=== PATIENT | female | born 1940 | race Caucasian/White ===

== ENCOUNTER → 2016-08-03 | Outpatient (CLI) | payer OTHER ==
[2016-08-03 10:40] LABS: BLOOD GAS BASE EXCESS 1.1 mmol/L (-2-2); BLOOD GAS CARBOXYHEMOGLOBIN 1.5 % (0-4); BLOOD GAS HCO3 25 mmol/L (22-26); BLOOD GAS METHEMOGLOBIN 0.9 % (0-2); BLOOD GAS O2 HGB SATURATION 96 % (90-100); BLOOD GAS OXYGEN CONTENT 17.6 Vol % (12.0-20.0); BLOOD GAS PCO2 37 mmHg (38-42); BLOOD GAS PO2 98 mmHg (61-120); TEMP CORR TO 98.6
[2016-08-03 10:41] LABS: CRITICAL VALUE NO; DRAW SITE RT RADIAL; FIO2 21 %; NUMBER OF ARTERIAL PUNCTURES 1; STAT NO; ULNAR PULSE PRESENT
--- NOTE | 2016-08-05 08:57 | RSPPFT ---
DATE OF PROCEDURE: 08/03/16 COMMENTS: Spirometry shows FVC of 2.0 at 77% of predicted, FEV1 of 1.2 at 68%, FEV1/FVC ratio is decreased. Flow is decreased at FEF 25, FEF 50, FEF 75 and FEF 25-75. There is a mild response after bronchodilator treatment. Lung volumes show residual volume is increased. TLC is normal. Diffusion capacity is normal. Flow volume loop indicates an obstructive pattern. IMPRESSION: 1. Mild obstructive lung disease. 2. Mild response after bronchodilator treatment. 3. Lung volumes show hyperinflation. 4. Normal diffusion capacity.
== END ==
LOC: HRSP 09:21
PROVIDERS: ATTEND Specialist
DX: J44.9 Chronic obstructive pulmonary disease, unspecified (principal)
CPT/HCPCS: 36600; 82805; 94060; 94726; 94729

== ENCOUNTER 2018-02-06 08:00 | Inpatient (IN) ==
[2018-02-27] MEDS ORDERED: Metoprolol Tartrate 25 MG Tablet PO ONE (06:35)
[2018-02-27] MEDS ORDERED: Chlorhexidine Gluconate 2% 1 Pack (2 Cloths) TOPICAL ONE (06:35)
--- NOTE | 2018-02-27 06:53 | XR ---
EXAM DATE: 02/27/2018 6:48 AM EDT AGE/SEX: 78 years / Female INDICATIONS: Evaluate for pneumonia, pneumothorax, or communicable disease. Pre-op right carotid frederick kelly. CLINICAL DATA: This is the patient's initial encounter. Patient reports that signs and symptoms have been present for 1 day and indicates a pain score of 0/10. MEDICAL/SURGICAL HISTORY: Hypertension. High cholesterol. Hypothyroidism. . Achilles tendon re pair.Hernia repair.Appendectomy.Bladder repair surgery.Cardiac catheterization.CholecystectomyPartial thyroidectomy. COMPARISON: [facility] [place] 2V PA&LAT, 02/01/2018. . FINDINGS: A single AP view of the chest demonstrates the lungs to be symmetrically aerated without evidence of mass, infiltrate or effusion. The cardiomediastinal contours are unremarkable. Osseous structures a re intact. CONCLUSION: No evidence of acute cardiopulmonary disease. Electronically signed by: Sal Yadav MD 02/27/2018 6:52 AM EDT
[2018-02-27 06:56] LABS: Baso # (Auto) 0.1 th/mm3 (0.0-0.2); Baso % (Auto) 1.3 % (0.0-2.0); Eos # (Auto) 0.4 th/mm3 (0.0-0.4); Eos % (Auto) 6.5 % (0.0-4.0); Hematocrit 35.6 % (35.0-46.0); Hemoglobin 12.2 gm/dL (11.6-15.3); Lymph # (Auto) 1.6 th/mm3 (1.0-4.8); Lymph % (Auto) 25.7 % (9.0-44.0); Mean Corpuscular HGB Conc 34.3 % (32.0-36.0); Mean Corpuscular Hemoglobin 30.2 pg (27.0-34.0); Mean Corpuscular Volume 88.2 fL (80.0-100.0); Mean Platelet Volume 7.6 fL (7.0-11.0); Mono # (Auto) 0.6 th/mm3 (0.0-0.9); Mono % (Auto) 9.7 % (0.0-8.0); Neut # (Auto) 3.5 th/mm3 (1.8-7.7); Neut % (Auto) 56.8 % (16.0-70.0); Platelet Count 254 th/mm3 (150-450); Red Blood Count 4.04 mil/mm3 (4.00-5.30); Red Cell Distribution Width 13.7 % (11.6-17.2); White Blood Count 6.2 th/mm3 (4.0-11.0)
[2018-02-27] MEDS ORDERED: Thrombin Topical 20,000 UNIT Spray Kit TOPICAL ONE (06:57)
[2018-02-27] MEDS ORDERED: Protamine Sulfate Inj 50 MG/5 ML Vial ONE (06:57)
[2018-02-27] MEDS ORDERED: Heparin/NS PF Inj 500 ML ONE (06:58)
[2018-02-27] MEDS ORDERED: Heparin 10,000 UNITS/10 ML Vial (for IV use) ONE (06:58)
[2018-02-27] MEDS ORDERED: Sodium Chlor 0.9% Inj 500 ML IV.SIG SCH (07:00)
[2018-02-27] MEDS ORDERED: Nitroglycerin Drip Premix 0 MG/0 ML BOTTLE ONE (07:07)
[2018-02-27 07:10] LABS: Calcium 8.6 mg/dL (8.5-10.1); Carbon Dioxide 29.5 meq/L (21.0-32.0); Potassium 3.7 meq/L (3.5-5.1)
[2018-02-27] MEDS ORDERED: ceFAZolin 2 GM Premix Inj 2 GM/50 ML PIGGYBACK IV.SIG ONE (07:30)
[2018-02-27] MEDS ORDERED: Bupivacaine PF 0.5% Inj 30 ML Vial ONE (07:30)
[2018-02-27 07:40] LABS: Bacteria,Urine Few /hpf; Bilirubin,Urine Negative (Negative); Clarity,Urine Cloudy (Clear); Color,Urine Yellow (Yellw/Straw); Glucose,Urine (UA) Negative (Negative); Hyaline Casts,Urine 1 /lpf (0-3); Leukocyte Esterase,Urine Large (Negative); Mucus,Urine Few /lpf (Occasional); Nitrite,Urine Negative (Negative); Squamous Epithelial Cell,Urine 19 /hpf (0-5)
[2018-02-27] MEDS ORDERED: Famotidine PF Inj 20 MG/2 ML Vial ONE (07:41)
[2018-02-27] MEDS ORDERED: Sugammadex Inj 200 MG/2 ML Vial IV.PUSH ONE (08:33)
--- NOTE | 2018-02-27 08:44 | P.HPVS ---
History of Present Illness Chief Complaint: Asymptomatic RIGHT carotid stenosis History of Present Illness: 78 yo female with asymptomatic 90% R ICA stenosis, no prior CVA/TIA. L <50% - Inpatient Certification If this patient has been admitted as an Inpatient: I certify that the inpatient services were ordered in accordance with Medicare regulations governing the order. This includes certification that hospital inpatient services are reasonable and necessary and in the case of services not specified as inpatient-only under 42 CFR 419.22(n), that they are appropriately provided as inpatient services in accordance to with the 2-midnight benchmark under 43 CFR 412.3(e) Estimated Total Length of Stay (Days): 2 Plans for Post Hospital Care: Home Review of Systems Constitutional: Denies chills, Denies fever(s) PMFSH - History History Provided By: Patient - Medical History Medical History: Medical History (Last Reviewed 02/27/18 @ 08:43 by Agustin Irving MD) Barretts esophagus Carotid stenosis, right High cholesterol History of rectocele Hx of hysterectomy Hypertension Hypothyroidism Wears glasses - Surgical History Surgical History: Surgical History (Last Reviewed 02/27/18 @ 08:43 by Agustin Irving MD) History of Achilles tendon repair History of incisional hernia repair Hx of appendectomy Hx of bladder repair surgery Hx of cardiac catheterization Hx of cholecystectomy Hx of hernia repair Hx of partial thyroidectomy Hx of umbilical hernia repair - Tobacco History Second Hand Smoke Exposure: No Smoking Status: Former smoker - Alcohol History How Often Do You Have a Drink Containing Alcohol: Monthly or less - Substance Use History Substance History: No History of Abuse - Travel History Recent Travel in the [place] Within the Last 8 Weeks: No Recent Travel Out of the Country Within the Last 8 Weeks: No Medications and Allergies Active Medications: Active Medications Lactated Ringer's (Lr 1000 Ml Inj) 1,000 mls @ 30 mls/hr IV.SIG .Q24H [facility] Stop: 02/28/18 06:44 Last Admin: 02/27/18 07:09 Dose: 30 mls/hr Sodium Chloride (Ns Inj) 500 mls @ 30 mls/hr IV.SIG .Q10H [facility] Last Admin: 02/27/18 07:09 Dose: Not Given Allergies Allergy/AdvReac Type Severity Reaction Status Date / Time No Known Allergies Allergy Verified 02/27/18 07:02 Home Medications Medication Instructions Recorded Confirmed Type aspirin [Adult Low Dose Aspirin] 81 mg PO DAILY 10/04/18 10/30/18 History atenolol 100 mg PO DAILY 02/01/18 02/27/18 History calcium carbonate [Calcium 600] 600 mg PO BID 02/01/18 02/27/18 History cholecalciferol (vitamin D3) 2,000 unit PO DAILY 02/01/18 02/27/18 History [Vitamin D3] hydroxychloroquine 200 mg PO BID 02/01/18 02/27/18 History levothyroxine 2 tab PO DAILY 02/01/18 02/27/18 History losartan-hydrochlorothiazide 1 tab PO DAILY 02/01/18 02/27/18 History omeprazole 40 mg PO DAILY 02/01/18 02/27/18 History oxybutynin chloride 5 mg PO BID 02/01/18 02/27/18 History simvastatin 40 mg PO QPM 02/01/18 02/27/18 History trazodone 100 mg PO DAILY 02/01/18 02/27/18 History Physical Exam Vital Signs / I&O: Vital Signs 02/27/18 06:48 Temperature 98.4 F Pulse Rate 53 L Respiratory Rate 22 Blood Pressure 129/66 Pulse Oximetry 99 Intake & Output 02/26/18 02/27/18 02/27/18 18:59 06:59 18:59 Weight 89.5 kg Other: Weight On Admission 89.5 kg Neuro: alert, appropriately anxious neuro intact HEENT: NC/AT Neck: no JVD and no neck rashes Heart: reg rate Lungs: clear Laboratory Results - last 24 hr 02/27/18 02/27/18 02/27/18 06:07 06:40 06:40 WBC 6.2 RBC 4.04 Hgb 12.2 Hct 35.6 MCV 88.2 MCH 30.2 MCHC 34.3 RDW 13.7 Plt Count 254 MPV 7.6 Neut % (Auto) 56.8 Lymph % (Auto) 25.7 [place] % (Auto) 9.7 H Eos % (Auto) 6.5 H Baso % (Auto) 1.3 Neut # (Auto) 3.5 Lymph # (Auto) 1.6 [place] # (Auto) 0.6 Eos # (Auto) 0.4 Baso # (Auto) 0.1 WBC Differential . Differential Comment Auto diff final PT INR APTT Sodium 140 Potassium 3.7 Chloride 103 Carbon Dioxide 29.5 Anion Gap 8 BUN 25 H Creatinine 1.46 H Estimated GFR 35 L Random Glucose 103 Calcium 8.6 Urine Color Yellow Urine Clarity Cloudy H Urine pH 6.0 Ur Specific [place] 1.010 Urine Protein Negative Urine Glucose (UA) Negative Urine Ketones Negative Urine Occult Blood Small H Urine Nitrate Negative Urine Bilirubin Negative Urine Urobilinogen Less than 2 Ur Leukocyte Esterase Large H Urine RBC 8 H Urine WBC 69 H Ur Squamous Epith Cells 19 Urine Bacteria Few H Hyaline Casts 1 Urine Mucus Few H Micro UA Comment Culture indicated Ur Microscopic Review Not Reportable Urine Culture Comments Culture indicated Blood Type Blood Type Recheck Antibody Screen 02/27/18 02/27/18 02/27/18 06:40 06:40 06:40 WBC RBC Hgb Hct MCV MCH MCHC RDW Plt Count MPV Neut % (Auto) Lymph % (Auto) [place] % (Auto) Eos % (Auto) Baso % (Auto) Neut # (Auto) Lymph # (Auto) [place] # (Auto) Eos # (Auto) Baso # (Auto) WBC Differential Differential Comment PT 10.0 INR 1.0 APTT 24.7 Sodium Potassium Chloride Carbon Dioxide Anion Gap BUN Creatinine Estimated GFR Random Glucose Calcium Urine Color Urine Clarity Urine pH Ur Specific [place] Urine Protein Urine Glucose (UA) Urine Ketones Urine Occult Blood Urine Nitrate Urine Bilirubin Urine Urobilinogen Ur Leukocyte Esterase Urine RBC Urine WBC Ur Squamous Epith Cells Urine Bacteria Hyaline Casts Urine Mucus Micro UA Comment Ur Microscopic Review Urine Culture Comments Blood Type O Positive Blood Type Recheck Required Antibody Screen Negative Impressions Chest X-Ray 02/27/18 00:00 CONCLUSION: No evidence of acute cardiopulmonary disease. Caprini VTE Risk Assessment Caprini VTE Risk Assessment: No/Low Risk (score <= 1) (intraop heparinization) Caprini Risk Assessment Model: Point Value = 1 Point Value = 2 Point Value = 3 Point Value = 5 Age 41-60 Minor surgery BMI > 25 kg/m2 Swollen legs Varicose veins or History of unexplained or recurrent spontaneous Oral contraceptives or hormone replacement Sepsis (< 1 month) Serious lung disease, including pneumonia (< 1 month) Abnormal pulmonary function Acute myocardial infarction Congestive heart failure (< 1 month) History of inflammatory bowel disease Medical patient at bed rest Age 61-74 Arthroscopic surgery Major open surgery (> 45 min) Laparoscopic surgery (> 45 min) Malignancy Confined to bed (> 72 hours) Immobilizing plaster cast Central venous access Age >= 75 History of VTE Family history of VTE Factor V Leiden Prothrombin [id number] Lupus anticoagulant Anticardiolipin antibodies Elevated serum homocysteine Heparin-induced thrombocytopenia Other congenital or acquired thrombophilia Stroke (< 1 month) Elective arthroplasty Hip, pelvis, or leg fracture Acute spinal cord injury (< 1 month) Prophylaxis Regimen: Total Risk Factor Score Risk Level Prophylaxis Regimen 0-1 Low Early ambulation 2 Moderate Order ONE of the following: *Sequential Compression Device (SCD) *Heparin 5000 units SQ BID 3-4 Higher Order ONE of the following medications: *Heparin 5000 units SQ TID *Enoxaparin/Lovenox 40 mg SQ daily (WT < 150 kg, CrCl > 30 mL/min) *Enoxaparin/Lovenox 30 mg SQ daily (WT < 150 kg, CrCl > 10-29 mL/min) *Enoxaparin/Lovenox 30 mg SQ BID (WT < 150 kg, CrCl > 30 mL/min) AND/OR *Sequential Compression Device (SCD) 5 or more Highest Order ONE of the following medications: *Heparin 5000 units SQ TID (Preferred with Epidurals) *Enoxaparin/Lovenox 40 mg SQ daily (WT < 150 kg, CrCl > 30 mL/min) *Enoxaparin/Lovenox 30 mg SQ daily (WT < 150 kg, CrCl > 10-29 mL/min) *Enoxaparin/Lovenox 30 mg SQ BID (WT < 150 kg, CrCl > 30 mL/min) AND *Sequential Compression Device (SCD) Assessment and Plan - Assessment (1) Carotid stenosis, right Code(s): I65.21 - Occlusion and stenosis of right carotid artery Status: Acute - Plan R CEA Discussed risks and benefits with patient and . Consent obtained. To OR [phone]
[2018-02-27] MEDS ORDERED: Bisacodyl 10 MG Supp RECTAL PRN (10:49)
[2018-02-27] MEDS ORDERED: Morphine Inj 4 MG/ML Vial IV.PUSH PRN (10:49)
--- NOTE | 2018-02-27 11:03 | P.OP ---
- Preoperative Diagnosis (1) Carotid stenosis, right - Postoperative Diagnosis (1) Carotid stenosis, right Date of procedure: 02/27/18 Procedure: R CEA Implants: bovine patch Anesthesia: GETA Surgeon: Agustin Irving MD Honing Machine Operator Tool: Edilia Raymundo Estimated blood loss (mL): 120 IV fluids (mL): 1,600 Urine output (mL): 400 Pathology: none sent Operation and Findings: successful CEA neuro intact after extubation
[2018-02-27] MEDS ORDERED: fentaNYL Citrate Inj 100 MCG/2 ML Ampul ONE (11:24)
[2018-02-27] MEDS ORDERED: Dextrose 50% in Water 50 ML Vial IV.PUSH PRN (12:32)
--- NOTE | 2018-02-27 13:01 | MB ---
cc: Ml Ross MD DATE: 02/27/2018 HISTORY OF PRESENT ILLNESS: The patient is a 78-year-old female with past medical history of right internal carotid artery stenosis, hyperlipidemia, hypertension, hypothyroidism, who underwent right carotid endarterectomy earlier today by Dr. Irving. The patient had 120 mL of estimated blood loss, 1.6 liters of crystalloid given in the OR and urine output was 400 mL. Critical care Medicine was consulted for critical care management. When seen, she is on 2 liters oxygen with a good saturation and current blood pressure 129/69. The patient is awake, alert, lying comfortable in bed, in no acute respiratory distress. She denies any chest pain, shortness of breath, or GI symptoms. In addition, she denies any orthopnea, PND, or edema of lower extremities. PAST MEDICAL HISTORY: Significant for hypothyroidism, hypertension, hyperlipidemia, right carotid artery stenosis, Sauceda's esophagus, obesity. PAST SURGICAL HISTORY: Previous appendectomy, previous cholecystectomy, previous hernia repair, previous partial thyroidectomy, previous bladder repair surgery, previous Achilles tendon repair. ALLERGIES: NO KNOWN DRUG ALLERGIES. SOCIAL HISTORY: The patient has remote history of tobacco use. Occasional drinker. FAMILY HISTORY: Noncontributory to present illness. MEDICATIONS AT HOME: 1. Aspirin. 2. Atenolol. 3. Trazodone. 4. Omeprazole. 5. Levothyroxine. 6. Simvastatin. 7. Hydroxychloroquine. REVIEW OF SYSTEMS: As per HPI. Rest of review of systems is unremarkable. PHYSICAL EXAMINATION: GENERAL: This is a 78 -year-old female lying in bed, in no acute respiratory distress. VITAL SIGNS: Temperature 97.5, pulse of 61, blood pressure 129/69, saturation 99%. HEENT: Atraumatic, normocephalic. Pupils are equal, round, reactive to light and accommodation. Extraocular muscles intact. Conjunctivae pink. Nonicteric sclerae. Oral mucosa within normal. NECK: Supple. No JVD, adenopathy, or thyromegaly. Trachea in the midline. CARDIOVASCULAR: Regular rate and rhythm. Normal S1, S2. No murmurs, rubs, or gallops noted. PULMONARY: Bilateral equal air entry. No rales or wheezing. ABDOMEN: Soft, obese, nontender. No distention. Positive bowel sounds. EXTREMITIES: No cyanosis, clubbing, or edema. NEUROLOGIC: No focal sensory deficit. LABORATORY DATA: WBC 6.2, hemoglobin 12.2, hematocrit 35, platelet count of 254. Sodium 140, potassium 3.7, chloride 103, CO2 29, BUN 25, creatinine 1.46, glucose of 103. Urinalysis showed large leukocyte esterase, 69 WBCs. RADIOGRAPHIC STUDIES: Chest x-ray showed no acute cardiopulmonary disease. IMPRESSION: 1. Respiratory insufficiency. 2. Status post right carotid endarterectomy. 3. Right carotid stenosis. 4. Mild acute kidney injury. 5. Urinary tract infection. 6. Hypertension. 7. Hypothyroidism. 8. Hyperlipidemia. 9. Obesity. RECOMMENDATIONS: 1. Monitor neuro status closely and avoid any sedatives. 2. Continue oxygen and maintain sats above 92%. 3. Place on bronchodilators in the form of DuoNeb every 6 hours and every 2 hours p.r.n. for shortness of breath. 4. Monitor heart rate and blood pressure closely and maintain MAP greater than 65 mmHg. 5. Continue aspirin 81 mg daily, Tenormin 100 mg daily as ordered. 6. Monitor renal function, I's and O's and electrolyte replacement as needed. Avoid nephrotoxins. 7. Start p.o. cardiac diet as ordered and place on Protonix [address] on Rocephin 1 gram IV daily for UTI and monitor for signs of infection, which include fever and WBC. Followup on a urine culture. 9. Monitor CBC. 10. Sliding scale insulin with Accu-Cheks if needed for glycemic control. Continue with Synthroid 176 mcg daily. We will check a baseline TSH level in am. 11. GI prophylaxis with Protonix 40 mg daily and DVT prophylaxis she is on Lovenox 40 mg subcutaneous daily. 12. Further recommendations will be based on hospital course. MD NURY Hill/suraj , 12:31 PM , 12:43 PM JERRELL
--- NOTE | 2018-02-27 13:49 | P.PNVS ---
Subjective Post Op Day #: 0 Procedure: R CEA Subjective/Hospital Course: Pt A&Ox3 Speech clear Pt c/o mild R neck incisional pain Pt neurologically intact w/o acute headache Pt endorsed R upper shoulder to neck discomfort- Hx of Objective Vital Signs / I&O: Vital Signs 02/27/18 06:48 02/27/18 11:31 02/27/18 11:33 Temperature 98.4 F 97.5 F L Pulse Rate 53 L 65 66 Respiratory Rate 22 18 Blood Pressure 129/66 134/67 Pulse Oximetry 99 99 02/27/18 11:39 Temperature Pulse Rate 59 L Respiratory Rate 17 Blood Pressure 129/69 Pulse Oximetry 99 Intake & Output 02/26/18 02/27/18 02/27/18 18:59 06:59 18:59 Intake Total 2150 / 2150 Output Total 520 / 520 Balance 1630 / 1630 Weight 89.5 kg Intake: IV 550 / 550 Heparin/NS PF Inj 500 ML @ 0 500 / 500 mls/hr .ROUTE .STK-MED ONE Rx#: [id number] Ancef 2 GM Premix Inj 2 gm In 50 / 50 50 ml @ 0 mls/hr IV.SIG .STK- MED ONE Rx#:[id number] Anesthesia Amount 1600 / 1600 Output: Estimated Blood Loss 120 / 120 Urine Amount (Catheter) 400 / 400 Indwelling Urethral Catheter 400 / 400 Other: Date of Last Bowel Movement 02/26/18 Weight On Admission 89.5 kg Exam: GENERAL: A&Ox3, GCS 15, NAD , speech clear SKIN: Warm and dry. Incision to r side of neck intact with surgical glue closure/ erythema noted at the mid incision line HEAD: Normocephalic. EYES: No scleral icterus. No injection or drainage. NECK: Supple, trachea midline. No JVD or lymphadenopathy. CARDIOVASCULAR: Regular rate and rhythm without murmurs, gallops, or rubs. RESPIRATORY: Breath sounds equal bilaterally. No accessory muscle use. Pt w/o acute headache Mild right sided facial droop present Pulses: R/L radial pulses present Laboratory Results - last 24 hr 02/27/18 02/27/18 02/27/18 06:07 06:40 06:40 WBC 6.2 RBC 4.04 Hgb 12.2 Hct 35.6 MCV 88.2 MCH 30.2 MCHC 34.3 RDW 13.7 Plt Count 254 MPV 7.6 Neut % (Auto) 56.8 Lymph % (Auto) 25.7 [place] % (Auto) 9.7 H Eos % (Auto) 6.5 H Baso % (Auto) 1.3 Neut # (Auto) 3.5 Lymph # (Auto) 1.6 [place] # (Auto) 0.6 Eos # (Auto) 0.4 Baso # (Auto) 0.1 WBC Differential . Differential Comment Auto diff final PT INR APTT Sodium 140 Potassium 3.7 Chloride 103 Carbon Dioxide 29.5 Anion Gap 8 BUN 25 H Creatinine 1.46 H Estimated GFR 35 L Random Glucose 103 Calcium 8.6 Urine Color Yellow Urine Clarity Cloudy H Urine pH 6.0 Ur Specific [place] 1.010 Urine Protein Negative Urine Glucose (UA) Negative Urine Ketones Negative Urine Occult Blood Small H Urine Nitrate Negative Urine Bilirubin Negative Urine Urobilinogen Less than 2 Ur Leukocyte Esterase Large H Urine RBC 8 H Urine WBC 69 H Ur Squamous Epith Cells 19 Urine Bacteria Few H Hyaline Casts 1 Urine Mucus Few H Micro UA Comment Culture indicated Ur Microscopic Review Not Reportable Urine Culture Comments Culture indicated Blood Type Blood Type Recheck Antibody Screen 02/27/18 02/27/18 02/27/18 06:40 06:40 06:40 WBC RBC Hgb Hct MCV MCH MCHC RDW Plt Count MPV Neut % (Auto) Lymph % (Auto) [place] % (Auto) Eos % (Auto) Baso % (Auto) Neut # (Auto) Lymph # (Auto) [place] # (Auto) Eos # (Auto) Baso # (Auto) WBC Differential Differential Comment PT 10.0 INR 1.0 APTT 24.7 Sodium Potassium Chloride Carbon Dioxide Anion Gap BUN Creatinine Estimated GFR Random Glucose Calcium Urine Color Urine Clarity Urine pH Ur Specific [place] Urine Protein Urine Glucose (UA) Urine Ketones Urine Occult Blood Urine Nitrate Urine Bilirubin Urine Urobilinogen Ur Leukocyte Esterase Urine RBC Urine WBC Ur Squamous Epith Cells Urine Bacteria Hyaline Casts Urine Mucus Micro UA Comment Ur Microscopic Review Urine Culture Comments Blood Type O Positive Blood Type Recheck Required Antibody Screen Negative Assessment and Plan - Assessment (1) Carotid stenosis, right Code(s): I65.21 - Occlusion and stenosis of right carotid artery Status: Acute - Plan 78/F with a hx of R sided cartoid artery stenosis Pt s/p R CEA POD 0 Pt doing well and is neurologically intact No complaints of acute headache Plan Ok to d/c A line Maintain systolic B/P 140-160 ok to D/c Doyle cath tomorrow am at 0600 Once tolerating a diet can d/c MIVF Pt may get OOB at 1600 Merna Baker NP [facility] [phone] Mr. Gregorio Johnson [phone]
[2018-02-27] MEDS ORDERED: Acetaminophen 325 MG Tablet PO PRN (14:04)
--- NOTE | 2018-02-27 14:55 | ECG ---
Date Performed: 02/27/2018 Time Performed: 07:06:45 PTAGE: 78 years EKG: SINUS BRADYCARDIA Since the previous tracing, no significant change noted BORDERLINE ECG PREVIOUS TRACING : 01/15/2001 19.43 DOCTOR: Anton Damico Interpretating Date/Time 02/27/2018 14:49:41
[2018-02-27] MEDS ORDERED: Insulin NovoLIN Regular Correctional Sugar Inj SQ SCH (18:00)
[2018-02-27] MEDS: Calcium Carbonate 500 MG Tablet PO SCH (20:16)
[2018-02-27] MEDS: Hydroxychloroquine 200 MG Tablet PO SCH (20:35)
--- NOTE | 2018-02-27 21:57 | MP ---
cc: Agustin Irving MD DATE OF OPERATION: 02/27/2018 PREOPERATIVE DIAGNOSIS: Asymptomatic high-grade right carotid stenosis. POSTOPERATIVE DIAGNOSIS: Asymptomatic high-grade right carotid stenosis. PROCEDURE PERFORMED: Right carotid endarterectomy. ATTENDING SURGEON: Agustin Irving MD MILITARY NURSE SURGEON: ALEKSANDER Charles ANESTHESIA: General. INDICATIONS: Mrs. Barboza is a 78-year-old female with a high-grade greater than 90% right carotid stenosis. She was taken to the operating room for elective carotid endarterectomy. DESCRIPTION OF PROCEDURE: Informed consent was obtained from the patient. She was taken to the operating room and placed supine on the operating table. An appropriate timeout was taken to ensure the patient's identity, operative site and planned procedure. The administration of 2 grams of Ancef was initiated prior to skin incision and will be discontinued after single preoperative dose. Everyone in the room agreed with timeout and we proceeded. Her right neck was prepped and draped and a vertical and incision was made along the anterior border of sternocleidomastoid down through subcutaneous tissue with electrocautery. The jugular vein was identified. This retracted posteriorly. The facial vein was divided between 3-0 silk ties. The common carotid artery was identified, dissected free, and encircled with a vessel loop. The internal carotid artery, external carotid artery and superior thyroid artery were all similarly dissected free. The patient was systemically heparinized. Once the ACT was confirmed to be greater than 250, distal then proximal control of the internal carotid artery and common carotid artery respectively were obtained with profunda clamps and the external carotid artery was controlled with a profunda clamp. A longitudinal arteriotomy was made with an 11 blade, extended with Dennys scissors from the common carotid artery extending up to the internal carotid artery to a reasonable endpoint. The artery was endarterectomized without difficulty and a nice endpoint was obtained. A bovine pericardial patch was brought up on the field and sewn on as a patch angioplasty. At the completion, it was flushed and noted to be hemostatic. The clamps were released. During the entire clamping and unclamping, there were no EEG neurological changes. The patch was made hemostatic. The heparin was reversed with protamine. Wound was infiltrated with Marcaine, irrigated and closed with 2-0 Polysorb, 3-0 Polysorb and 4-0 Monocryl. The sponge and needle counts were correct at the end of the case. At the end of the case, the patient was awoken from anesthesia, moved all extremities and transported to ICU in stable condition. MD SHIRA Hawkins/myla , 08:55 PM , 09:02 PM JERRELL
[2018-02-28] MEDS: Senna/Docusate Sodium 8.6/50 MG Tablet PO SCH ×2 (00:42→08:50)
[2018-02-28 04:32] LABS: Hematocrit 34.5 % (35.0-46.0); Mean Corpuscular HGB Conc 34.6 % (32.0-36.0); Mean Corpuscular Hemoglobin 30.3 pg (27.0-34.0); Mean Corpuscular Volume 87.3 fL (80.0-100.0); Mean Platelet Volume 8.4 fL (7.0-11.0); Platelet Count 233 th/mm3 (150-450); Red Blood Count 3.95 mil/mm3 (4.00-5.30); Red Cell Distribution Width 13.5 % (11.6-17.2); White Blood Count 15.5 th/mm3 (4.0-11.0)
[2018-02-28 04:45] LABS: Calcium 8.5 mg/dL (8.5-10.1); Carbon Dioxide 27.2 meq/L (21.0-32.0); Potassium 4.1 meq/L (3.5-5.1)
[2018-02-28 04:56] LABS: Thyroid Stimulating Hormone 1.88 uIU/mL (0.358-3.740)
[2018-02-28] MEDS ORDERED: Levothyroxine 88 MCG Tablet PO SCH (06:00)
--- NOTE | 2018-02-28 06:45 | P.PNCC ---
Subjective Subjective Remarks/Hospital Course: The patient is a 78-year-old female with past medical history of right internal carotid artery stenosis, hyperlipidemia, hypertension, hypothyroidism, who underwent right carotid endarterectomy earlier today by Dr. Irving. The patient had 120 mL of estimated blood loss, 1.6 liters of crystalloid given in the OR and urine output was 400 mL. Critical care Medicine was consulted for critical care management. When seen, she is on 2 liters oxygen with a good saturation and current blood pressure 129/69. The patient is awake, alert, lying comfortable in bed, in no acute respiratory distress. She denies any chest pain, shortness of breath, or GI symptoms. In addition, she denies any orthopnea, PND, or edema of lower extremities Subjective 02/28: No acute events overnight. Surgical site without signs of bleeding and well-healed. Some ecchymoses below the site. Complaining of neck pain which is been chronic. Not musculoskeletal in nature on examination.. Blood pressure slowly elevated overnight. Objective Vital Signs / I&O: Vital Signs 02/27/18 06:48 02/27/18 11:31 02/27/18 11:33 Temperature 98.4 F 97.5 F L Pulse Rate 53 L 65 66 Respiratory Rate 22 18 Blood Pressure 129/66 134/67 Pulse Oximetry 99 99 02/27/18 11:39 02/27/18 13:00 02/27/18 13:30 Temperature Pulse Rate 59 L 56 L Respiratory Rate 17 12 Blood Pressure 129/69 Pulse Oximetry 99 02/27/18 15:43 02/27/18 16:00 02/27/18 16:26 Temperature Pulse Rate 57 L 56 L Respiratory Rate 14 23 Blood Pressure Pulse Oximetry 02/27/18 19:00 02/27/18 23:00 02/28/18 03:00 Temperature 97.9 F 98.0 F Pulse Rate 59 L 58 L 74 Respiratory Rate 22 19 Blood Pressure 153/68 H 156/70 H Pulse Oximetry 98 99 Intake & Output 02/27/18 02/27/18 02/28/18 06:59 18:59 06:59 Intake Total 3350 / 3350 600 / 600 Output Total 1020 / 1020 600 / 600 Balance 2330 / 2330 0 / 0 Weight 89.5 kg 88.3 kg Intake: IV 550 / 550 Heparin/NS PF Inj 500 ML @ 0 500 / 500 mls/hr .ROUTE .STK-MED ONE Rx#: [id number] Ancef 2 GM Premix Inj 2 gm In 50 / 50 50 ml @ 0 mls/hr IV.SIG .STK- MED ONE Rx#:[id number] Oral 1200 / 1200 600 / 600 Anesthesia Amount 1600 / 1600 Output: Urine 600 / 600 Estimated Blood Loss 120 / 120 Urine Amount (Catheter) 900 / 900 Indwelling Urethral Catheter 900 / 900 Other: # Voids 4 Date of Last Bowel Movement 02/26/18 02/26/18 Weight On Admission 89.5 kg Result Diagrams: 02/28/18 03:35 02/28/18 03:35 Imaging: Chest X-Ray 02/27/18 00:00 CONCLUSION: No evidence of acute cardiopulmonary disease. Objective Remarks: GENERAL: 78-year-old female currently resting in bed in no acute distress SKIN: Warm and dry. HEAD: Atraumatic. Normocephalic. EYES: Pupils equal and round 3 mm bilaterally and reactive. No scleral icterus. No injection or drainage. ENT: No nasal bleeding or discharge. Mucous membranes pink and moist. NECK: Trachea midline. No JVD. Right IJ incision site clean dry intact. Sutures intact. Ecchymoses below surgical site. CARDIOVASCULAR: Regular rate and rhythm. RESPIRATORY: No accessory muscle use. Clear to auscultation. Breath sounds equal bilaterally. GASTROINTESTINAL: Abdomen soft, non-tender, nondistended. Hepatic and splenic margins not palpable. MUSCULOSKELETAL: Extremities without significant peripheral edema. No obvious deformities. NEUROLOGICAL: Awake and alert. Facial assymmetry. Motor grossly within normal limits. Five out of 5 muscle strength in the arms and legs. Normal speech. Assessment and Plan - Assessment and Plan Plan: Neuro.Psych: Depression NOS Vitamin-650 mg a mouth every 4 hours. Pain 1-2 Oxycodone 5 mg p.o. every 4 hours as needed pain 3 through 5 Hydromorphone 2 mg IV every 4 hours as needed pain 6 through 10 Morphine sulfate 2 mg IV every 2 hours as needed breakthrough pain Continue trazodone 100 mg at night CV: Postop day [address]. Irving Essential hypertension Hyperlipidemia Continue aspirin 81 mg daily Continue pravastatin 80 mg daily/hospital substitute for simvastatin 40 mg daily Continue losartan 100 mg daily, atenolol 100 mg daily, hydrochlorthiazide 25 mg p.o. daily Labetalol as needed. Resp: Nasal cannula to maintain saturations greater than equal to 92% Incentive spirometry while awake As needed albuterol aerosols every 2 hours as needed GI: History of Sauceda's esophagus Cardiac diet Pantoprazole for GI prophylaxis Docusate sodium/senna 1 tablet twice daily for bowel regimen : Straight catheterization as needed Endo: Hypothyroidism Continue levothyroxine 176 mcg daily. TSH is 1.88. Novulin R ssi AC/at bedtime low regimen to maintain euglycemia Renal: Chronic kidney disease stage IIIb Monitor urine output Accurate I's and O's LR 30 cc an hour times 1 L and discontinue Heme: Leukocytosis Monitor CBC daily. Follow trends. No indication for transfusion of blood products at this time. ID: Cystitis present on admission Currently on ceftriaxone 1 g every 24 hours. Follow-up UA culture msk: Chronic neck pain Osteoarthritis PT evaluate and treat. Outpatient evaluation Continue cholecalciferol 2000 units daily. Continue hydroxychloroquine 200 mg twice daily Continue calcium carbonate 5 mg twice daily fen: Replace electrolytes as clinically indicated Access -Utilize peripheral IV. Central line if indicated Prophylaxis -GI- Pantoprazole- DVT-SCD/enoxaparin Level 2 follow-up
--- NOTE | 2018-02-28 06:59 | P.PNVS ---
Subjective Post Op Day #: 1 Procedure: R CEA Subjective/Hospital Course: looks good neuro intact except asymmetric smile feels good bp controlled voiding and abbi po Objective Vital Signs / I&O: Vital Signs 02/27/18 11:31 02/27/18 11:33 02/27/18 11:39 Temperature 97.5 F L Pulse Rate 65 66 59 L Respiratory Rate 18 17 Blood Pressure 134/67 129/69 Pulse Oximetry 99 99 02/27/18 13:00 02/27/18 13:30 02/27/18 15:43 Temperature Pulse Rate 56 L Respiratory Rate 12 14 Blood Pressure Pulse Oximetry 02/27/18 16:00 02/27/18 16:26 02/27/18 19:00 Temperature 97.9 F Pulse Rate 57 L 56 L 59 L Respiratory Rate 23 22 Blood Pressure 153/68 H Pulse Oximetry 98 02/27/18 23:00 02/28/18 03:00 Temperature 98.0 F Pulse Rate 58 L 74 Respiratory Rate 19 Blood Pressure 156/70 H Pulse Oximetry 99 Intake & Output 02/27/18 02/27/18 02/28/18 06:59 18:59 06:59 Intake Total 3350 / 3350 600 / 600 Output Total 1020 / 1020 600 / 600 Balance 2330 / 2330 0 / 0 Weight 89.5 kg 88.3 kg Intake: IV 550 / 550 Heparin/NS PF Inj 500 ML @ 0 500 / 500 mls/hr .ROUTE .STK-MED ONE Rx#: [id number] Ancef 2 GM Premix Inj 2 gm In 50 / 50 50 ml @ 0 mls/hr IV.SIG .STK- MED ONE Rx#:[id number] Oral 1200 / 1200 600 / 600 Anesthesia Amount 1600 / 1600 Output: Urine 600 / 600 Estimated Blood Loss 120 / 120 Urine Amount (Catheter) 900 / 900 Indwelling Urethral Catheter 900 / 900 Other: # Voids 4 Date of Last Bowel Movement 02/26/18 02/26/18 Weight On Admission 89.5 kg Exam: R neck numbness neck incision c/d/i with mild ecchymoses asymmetric smile but otherwise neuro intact Laboratory Results - last 24 hr 02/27/18 02/27/18 02/27/18 06:07 06:40 06:40 WBC RBC Hgb Hct MCV MCH MCHC RDW Plt Count MPV PT 10.0 INR 1.0 APTT Sodium 140 Potassium 3.7 Chloride 103 Carbon Dioxide 29.5 Anion Gap 8 BUN 25 H Creatinine 1.46 H Estimated GFR 35 L POC Glucose Random Glucose 103 Calcium 8.6 TSH Urine Color Yellow Urine Clarity Cloudy H Urine pH 6.0 Ur Specific Sweeny 1.010 Urine Protein Negative Urine Glucose (UA) Negative Urine Ketones Negative Urine Occult Blood Small H Urine Nitrate Negative Urine Bilirubin Negative Urine Urobilinogen Less than 2 Ur Leukocyte Esterase Large H Urine RBC 8 H Urine WBC 69 H Ur Squamous Epith Cells 19 Urine Bacteria Few H Hyaline Casts 1 Urine Mucus Few H Micro UA Comment Culture indicated Ur Microscopic Review Not Reportable Urine Culture Comments Culture indicated Blood Type Blood Type Recheck Antibody Screen 02/27/18 02/27/18 02/27/18 06:40 06:40 13:59 WBC RBC Hgb Hct MCV MCH MCHC RDW Plt Count MPV PT INR APTT 24.7 Sodium Potassium Chloride Carbon Dioxide Anion Gap BUN Creatinine Estimated GFR POC Glucose 125 H Random Glucose Calcium TSH Urine Color Urine Clarity Urine pH Ur Specific Sweeny Urine Protein Urine Glucose (UA) Urine Ketones Urine Occult Blood Urine Nitrate Urine Bilirubin Urine Urobilinogen Ur Leukocyte Esterase Urine RBC Urine WBC Ur Squamous Epith Cells Urine Bacteria Hyaline Casts Urine Mucus Micro UA Comment Ur Microscopic Review Urine Culture Comments Blood Type O Positive Blood Type Recheck Required Antibody Screen Negative 02/27/18 02/28/18 02/28/18 18:07 03:35 03:35 WBC 15.5 H D RBC 3.95 L Hgb 12.0 Hct 34.5 L MCV 87.3 MCH 30.3 MCHC 34.6 RDW 13.5 Plt Count 233 MPV 8.4 PT INR APTT Sodium 135 L Potassium 4.1 Chloride 98 Carbon Dioxide 27.2 Anion Gap 10 BUN 19 H Creatinine 1.44 H Estimated GFR 35 L POC Glucose 157 H Random Glucose 108 H Calcium 8.5 TSH 1.880 Urine Color Urine Clarity Urine pH Ur Specific Sweeny Urine Protein Urine Glucose (UA) Urine Ketones Urine Occult Blood Urine Nitrate Urine Bilirubin Urine Urobilinogen Ur Leukocyte Esterase Urine RBC Urine WBC Ur Squamous Epith Cells Urine Bacteria Hyaline Casts Urine Mucus Micro UA Comment Ur Microscopic Review Urine Culture Comments Blood Type Blood Type Recheck Antibody Screen Assessment and Plan - Assessment (1) Carotid stenosis, right Code(s): I65.21 - Occlusion and stenosis of right carotid artery Status: Acute - Plan POD#1 s/p R CEA looks good ready for discharge ASA/statin f/u 1m with carotid duplex Discharge Planning: today
[2018-02-28] MEDS ORDERED: Labetalol HCl Inj 100 MG/20 ML Vial IV.PUSH PRN (07:01)
[2018-02-28] MEDS ORDERED: Insulin NovoLIN Regular Correctional Sugar Inj SQ SCH (08:00)
[2018-02-28] MEDS: Calcium Carbonate 500 MG Tablet PO SCH (08:49)
[2018-02-28] MEDS: Hydroxychloroquine 200 MG Tablet PO SCH (08:51)
[2018-02-28] MEDS ORDERED: Non-Formulary Drug (Losartan-Hydrochlorothiazide [Losartan-Hydrochlorothiazide] 1 TAB) PO SCH (09:00)
[2018-02-28] MEDS ORDERED: Atenolol 100 MG Tablet PO SCH (09:00)
[2018-02-28] MEDS ORDERED: traZODone 100 MG Tablet PO SCH (09:00)
[2018-02-28] MEDS ORDERED: hydroCHLOROthiazide 25 MG Tablet PO SCH (09:00)
--- NOTE | 2018-02-28 09:09 | P.DS ---
Discharge Summary - Admission Date 02/27/18 05:44 - Admission Diagnosis (1) Carotid stenosis, right - Discharge Date 02/28/18 - Discharge Diagnosis (1) S/P carotid endarterectomy Status: Acute (2) Carotid stenosis, right Status: Acute - Summary Brief History from admission: 78 yo female with asymptomatic 90% R ICA stenosis, no prior CVA/TIA. L <50% Procedure: R CEA Significant Findings: Pt Neurologically intact w/ slight r sided facial droop Incision intact w/ ecchymosis to mid section of incision line Abnormal Lab Results 02/27/18 02/27/18 02/28/18 13:59 18:07 03:35 WBC RBC Hgb Hct MCV MCH MCHC RDW Plt Count MPV Sodium 135 L Potassium 4.1 Chloride 98 Carbon Dioxide 27.2 Anion Gap 10 BUN 19 H Creatinine 1.44 H Estimated GFR 35 L POC Glucose 125 H 157 H Random Glucose 108 H Calcium 8.5 TSH 1.880 02/28/18 03:35 WBC 15.5 H D RBC 3.95 L Hgb 12.0 Hct 34.5 L MCV 87.3 MCH 30.3 MCHC 34.6 RDW 13.5 Plt Count 233 MPV 8.4 Sodium Potassium Chloride Carbon Dioxide Anion Gap BUN Creatinine Estimated GFR POC Glucose Random Glucose Calcium TSH Hospital Course: 78 yo female with asymptomatic 90% R ICA stenosis, no prior CVA/TIA. L <50% Pt s/p R CEA POD 1 Pt voiding pain controlled Incision intact w/o hematoma mild swelling present No c/o acute headache Pt ambulating and tolerating diet Pt clear for d/c Will arrange f/u in 4W with a surveillance carotid duplex E- Forcse reviewed- Pt Rx out pt pain med for post operative pain management at home - Discharge Instructions Any questions or concerns: Call [facility] [phone] Discharge Plan - Discharge Disposition Patient Disposition: 01 Discharge Home - Discharge Condition Condition: Good - Discharge Order Discharge Orders: Discharge Order (Routine); Ordered 02/28/18 Ordered By: Merna Baker - Physicians Team Primary Care Provider: Do Baron Fall Attending Provider: Agustin Irving Other Providers: Ml Ross MD - Rxs /Orders / Referrals /Forms Prescriptions: New oxycodone 5 mg Tablet 5 mg PO Q4H PRN (Reason: pain) Qty: 20 RF: 0 Continue aspirin [Adult Low Dose Aspirin] 81 mg Tablet,Delayed Release (Dr/Ec) 81 mg PO DAILY atenolol 100 mg Tablet 100 mg PO DAILY calcium carbonate [Calcium 600] 600 mg calcium (1,500 mg) Tablet 600 mg PO BID cholecalciferol (vitamin D3) [Vitamin D3] 2,000 unit Capsule 2,000 unit PO DAILY hydroxychloroquine 200 mg Tablet 200 mg PO BID levothyroxine 88 mcg Tablet 2 tab PO DAILY losartan-hydrochlorothiazide 100-25 mg Tablet 1 tab PO DAILY omeprazole 20 mg Tablet,Delayed Release (Dr/Ec) 40 mg PO DAILY oxybutynin chloride 5 mg Tablet 5 mg PO BID simvastatin 40 mg Tablet 40 mg PO QPM trazodone 100 mg Tablet 100 mg PO DAILY Referrals: Do Baron Fall MD [Primary Care Provider] - See Instructions Agustin Irving MD [Physician] - See Instructions (your surveillance carotid duplex is scheduled on 03/27/18 at 11:30 your post op follow up appointment is scheduled on 03/30/18 at 11:00) - Discharge Instructions Patient Printed Instructions: Carotid Endarterectomy (DC), Carotid Artery Disease (GEN) - Post Discharge Care Plan Care Plan Goals: Discharge Care Plan Goals After Vascular Surgery Contact: Please call [phone] if you have any problems or have questions regarding your hospitalization. Directions to Meet Your Goals: 1. Diet: * You may resume a regular diet as you were eating at home before your admission. 2. Activity: * Increase your activity level gradually. * Keep surgical extremities elevated when at rest. This will help limit the swelling, bruising and discomfort normally present after surgery. * Walking is a good form of light exercise. Go for a walk at least 3 times per day. * No heavy lifting (lifting over 10 pounds) for at least 4 weeks from surgery. * Check with your surgeon to ensure when you are cleared for heavy lifting and full-intensity exercising. * Your strength will gradually improve. * No driving or operating motorized vehicles while on prescription pain medications. * No swimming until wounds fully healed. * Return to work when cleared by MD/PA/RADIATION THERAPIST. 3. Bathing: Shower daily. * Gently let soap and water run over your incision and pat dry. Do not scrub the incision/wound. * Don't soak in a bath or submerge your incision in water until your incision is healed and evaluated by your physician at follow-up (usually two weeks). 4. Wound Care: INCISION SITE CARE INSTRUCTIONS: * You may leave your incision open to air. * Keep your incision clean and dry, unless showering. See above. * Moisture near the incision will cause the wound to open. * No lotions, creams, ointments, or powders on incisions until they are well- healed. * If you have glue over the incision(s), allow it to fall off naturally in 1-3 weeks * If present, jesika/sutures will be removed 2-3 weeks after surgery during your follow-up clinic visit. * If present, change dressing/bandage when soaked/soiled as needed. * Observe wound daily, checking for signs and symptoms of infection including: foul odor, drainage from the incision, increased redness, increased pain at incision, or increased swelling. 5. Pain Control: Expect post-operative pain for 1-4 weeks after surgery. Your pain will improve gradually. * You may have been provided with a prescription for pain medication. Please take as directed, and be aware of side effects such as drowsiness, constipation and mild stomach discomfort. Pain pills on an empty stomach can cause nausea , so eat a small amount of food, such as crackers, when taking these pills. * Take [id number] stool softeners (Colace or Senna) with your prescribed pain medication. * Acetaminophen (500mg every 6 hours) or Ibuprofen (400mg every 6 hours) may be used in conjunction with narcotics to relieve pain. DO NOT take more than 4 grams (4000mg) of Tylenol in one day, as this can harm your liver. DO NOT take ibuprofen IF: you have an allergy to non-steroidal anti-inflammatory medications, you are taking Coumadin, you have been told you have kidney problems, or you have a history of gastrointestinal bleeding or ulcers. DO NOT take more than 3.2 grams (3200mg) of ibuprofen in one day. * You may also find relief from using heat packs or pads or ice packs. 6. Bowel Regimen for Constipation: * People who undergo surgery are likely to develop post-operative constipation. Exposure to narcotics and changes in diet, fluid intake, and physical activity are known contributors to constipation. We recommend routine stool softeners and/ or laxatives after surgery for most patients. Start by taking one medication. You can increase as directed to relieve constipation. Stop taking these medications if you develop diarrhea. These medications are available over-the- counter and do not require a prescription: * Colace is a stool softener. We recommend starting at 100mg orally twice per day as needed for soft stools and increase to a maximum of 200mg twice daily as needed. * Senna is a laxative that works by keeping water in the intestine to help stool move along the intestinal tract. Take 1 tablet daily as needed for soft stool and increase to a maximum of 2 tablets twice daily as needed. Take Senna with two full glasses of water each time. * Miralax, Dulcolax and Milk of Magnesia are other srkw-hxa-plnkasl laxatives that may be used as needed for post-operative constipation. * Drink 6-8 glasses of water per day. * Consume 15-30g of fiber per day: * Metamucil powder, 1-2 tablespoons 1-2 times/day OR Benefiber powder, 2 tablespoons 4 times/day. * Avoid straining. 7. Follow-Up: Do Not miss your follow-up appointment. Keep up with all your appointments and yearly check ups If you have any of the following symptoms please call [phone] immediately: Excessive swelling of the affected extremity Sudden onset of severe or unusual pain in the affected extremity Pain that gets worse or is not relieved by medication Warmth, redness, or swelling in the skin around the wound Foul drainage from incision Extensive bruising or discoloration Wound that opens up or pulls apart Fever above 101.5F or shaking chills Nausea or vomiting Severe diarrhea or severe constipation Dizziness or fainting Chest pain, shortness of breath, or increased work of breathing Weight gain >10 lbs over 3-4 days Inability to urinate for more than 6 hours Cloudy or foul smelling urine Urge to urinate more often than usual Symptoms to Report to Your Doctor: Temperature 101F or higher Pain uncontrolled by medication Drainage or foul odor from incision Extensive bruising or discoloration Chest pain Shortness of breath Nausea, vomiting or dizziness Call 911: Call 911 right away if you have: Sudden onset of chest pain that is not relieved by medications Shortness of breath
[2018-02-28] MEDS ORDERED: Enoxaparin Inj 40 MG/0.4 ML Syringe SQ SCH (11:00)
== END 2018-02-28 10:34 | disposition home or self-care (01) ==
LOC: HSDI 02-27 05:44 → HCVI 02-27 11:24 → N03 02-27 12:44
PROVIDERS: ADMIT Surgery; ATTEND Surgery